=== PATIENT | male | born 1950 | race African-American/Black ===

== ENCOUNTER 2020-05-05 13:43 | Inpatient (IN) | payer SELFPAY ==
[~2020-05-05] VITALS: Ht 172.7 cm; Wt 49.9 kg
[2020-05-05] MEDS ORDERED: DEXTROSE 50% SYRINGE 50 ML IV ONE (15:16)
[2020-05-05 15:40] LABS: Mean Corpuscular Hemoglobin 28.7 pg (28.0-32.0)
[2020-05-05 15:42] LABS: Hematocrit 15.9 % (41.0-53.0); Mean Corpuscular Hgb Conc. 34.3 g/dL (32.0-36.0); Mean Corpuscular Volume 83.6 fL (80.0-100.0)
[2020-05-05] MEDS ORDERED: DEXTROSE (50%) 50ML SYRG IV ONE (15:45)
[2020-05-05 15:49] LABS: White Blood Cell 1.9 10^3/uL (4.4-10.8)
[2020-05-05 15:52] LABS: Hemoglobin 5.5 g/dL (13.5-17.5); Platelet Count (auto) 9 10^3/uL (140-450)
[2020-05-05 15:54] LABS: Band Neutrophils % (manual) 0; Basophils % (manual) 0 (0.0-2.0); Blast Cells 0; Eosinophils % (manual) 0 (0-7); Promyelocytes % 0
[2020-05-05 15:56] LABS: INR 1.81 (0.9-1.15)
[2020-05-05 16:04] LABS: Albumin 2.3 g/dL (3.4-5.0); Calcium 9.6 mg/dL (8.5-10.1); Potassium 3.8 mmol/L (3.5-5.1)
[2020-05-05 16:10] LABS: BUN/Creatinine Ratio 29.8; Bilirubin, Total 1.8 mg/dL (0.2-1.0); Total Protein 5.1 g/dL (6.4-8.2)
[2020-05-05] MEDS ORDERED: SODIUM CHLORIDE 0.9% 2,000 ML IV ONE (16:15)
[2020-05-05] MEDS ORDERED: AZITHROMYCIN 500MG/ 250ML 250 ML IV ONE (17:45)
[2020-05-05] MEDS ORDERED: SODIUM CHLORIDE 0.9% 1,000 ML IV ONE ×2 (18:45→19:15)
[2020-05-05] MEDS ORDERED: ONDANSETRON HCL 4 MG/2 ML VIAL IV PRN (18:45)
[2020-05-05] MEDS ORDERED: HYDROcodone-ACET 5/325MG TAB PO PRN (18:45)
[2020-05-05] MEDS ORDERED: NITROGLYCERIN 0.4 MG SL TAB SL PRN (18:45)
[2020-05-05] MEDS ORDERED: MORPHINE SULF INJ 2 MG/ML SYRINGE 1ML IV PRN ×2 (18:45)
[2020-05-05] MEDS ORDERED: ACETAMINOPHEN 500 MG TAB PO PRN (18:45)
[2020-05-05 20:00] VITALS: BP 91/45
[2020-05-05 20:35] LABS: CRP High Sensitivity 5.07 mg/dL (< 0.3)
[2020-05-05 20:50] LABS: Metamyelocytes % 3; Monocytes % (manual) 10 (0-12); Myelocytes % 2
[2020-05-05 20:51] LABS: Lymphocytes % (manual) 73 (10.0-50.0); Reactive Lymphocytes 4
[2020-05-05] MEDS ORDERED: BUDESONIDE (INHALATION) 180 MCG IH IN SCH (22:00)
[2020-05-05] MEDS ORDERED: ALBUMIN 5% 250 ML IV ONE ×2 (22:00→23:30)
[2020-05-05] MEDS ORDERED: SODIUM BICARBONATE 8.4% INJ 50ML SYRINGE ONE ×2 (22:30→23:07)
[2020-05-05] MEDS ORDERED: NOREPINEPHRINE 8 MG/250ML KIT 250 ML IV ONE (22:41)
[2020-05-05] MEDS ORDERED: MIDAZOLAM DRIP 50 mg/50mL 50 ML IV ONE (22:43)
[2020-05-05] MEDS ORDERED: MIDAZOLAM DRIP 50 mg/50mL 50 ML IV PRN (22:45)
[2020-05-05] MEDS ORDERED: ACETAMINOPHEN 650 mg PER 20.3 mL UD GT PRN ×2 (22:45)
[2020-05-05] MEDS ORDERED: MIDAZOLAM DRIP 50 mg/50mL 50 ML IV SCH (22:45)
[2020-05-05] MEDS ORDERED: NOREPINEPHRINE 8 MG/250ML KIT 250 ML IV SCH (22:45)
[2020-05-05] MEDS ORDERED: EPINEPHrine HCL 250 ML IV SCH (23:15)
[2020-05-05] MEDS ORDERED: EPINEPHrine HCL 250 ML IV ONE (23:22)
[2020-05-05] MEDS ORDERED: EPINEPHrine HCL 1 MG/10 ML SYRG ONE (23:31)
[2020-05-05 23:59] LABS: Basophils # (auto) 1.6 10 ^3/uL (0-0.2); Basophils % (auto) 7.3 % (0.0-2.0); Eosinophils # (auto) 0.3 10 ^3/uL (0-0.8); Eosinophils % (auto) 1.6 % (0.0-7.0); Hematocrit 16.3 % (41.0-53.0); Lymphocytes # (auto) 13.9 10 ^3/uL (0.4-5.4); Mean Corpuscular Hemoglobin 29.2 pg (28.0-32.0); Mean Corpuscular Hgb Conc. 27.2 g/dL (32.0-36.0); Mean Corpuscular Volume 107.2 fL (80.0-100.0); Monocytes # (auto) 0.4 10 ^3/uL (0-1.3); Monocytes % (auto) 1.7 % (0.0-12.0); Neutrophils # (auto) 5.3 10 ^3/uL (1.6-8.6); Neutrophils % (auto) 24.7 % (37.0-80.0); Platelet Count (auto) 60 10^3/uL (140-450); Red Blood Cells 1.52 10^6/uL (4.5-5.90); White Blood Cell 21.4 10^3/uL (4.4-10.8)
[2020-05-06 00:02] LABS: Lymphocytes % (auto) 64.7 % (10.0-50.0); Nucleated Red Blood Cells % 4.5 %; Red Cell Distribution Width 20.4 % (11.8-14.3)
[2020-05-06 00:03] LABS: Hemoglobin 4.4 g/dL (13.5-17.5)
[2020-05-06 00:16] LABS: Albumin 1.5 g/dL (3.4-5.0); Calcium 8.8 mg/dL (8.5-10.1); Magnesium 2.8 mg/dL (1.6-2.6); Potassium 5.3 mmol/L (3.5-5.1)
[2020-05-06 00:32] LABS: BUN/Creatinine Ratio 26.9
[2020-05-06 00:33] LABS: Bilirubin, Total 0.8 mg/dL (0.2-1.0); Phosphorus 9.8 mg/dL (2.5-4.90); Total Protein 3.3 g/dL (6.4-8.2)
[2020-05-06] MEDS ORDERED: cefTRIAXone 1GM/50ML D5W 50 ML IV SCH (09:00)
[2020-05-06] MEDS ORDERED: ASCORBIC ACID 1,000 MG TAB PO SCH (10:00)
[2020-05-06] MEDS ORDERED: ZINC SULFATE 220mg CAP or TAB PO SCH (10:00)
[2020-05-06] MEDS ORDERED: AZITHROMYCIN 500MG/ 250ML 250 ML IV SCH (10:00)
[2020-05-06] MEDS ORDERED: CHOLECALCIFEROL (VITD3) 2,000 UNIT CAP PO SCH (10:00)
[2020-05-06] MEDS ORDERED: BUDESONIDE (INHALATION) 0.5 MG/2 ML NEB NEB SCH ×2 (10:00)
[2020-05-06] MEDS ORDERED: DexAMETHasone SOD PHOS 10MG/1ML VIAL INJ IV SCH (10:00)
== END 2020-05-05 23:29 | DRG 682 ==
LOC: EDUNIT# 13:43 → ER 13:43 → TELE 13:44
PROVIDERS: ADMIT Nurse Practitioner Acute Care; ATTEND Nurse Practitioner Acute Care
PROC: 5A12012 Performance of Cardiac Output, Single, Manual (ICD-10-PCS; principal; 2020-05-05)
PROC: 0BH17EZ Insertion of Endotracheal Airway into Trachea, Via Natural or Artificial Opening (ICD-10-PCS; 2020-05-05)
DX: N17.0 Acute kidney failure with tubular necrosis (principal); J12.9 Viral pneumonia, unspecified; E43 Unspecified severe protein-calorie malnutrition; G93.41 Metabolic encephalopathy; J96.01 Acute respiratory failure with hypoxia; D61.818 Other pancytopenia; Z68.1 Body mass index [BMI] 19.9 or less, adult; C90.00 Multiple myeloma not having achieved remission; E16.2 Hypoglycemia, unspecified; I46.9 Cardiac arrest, cause unspecified; N18.9 Chronic kidney disease, unspecified; Z20.828 Contact with and (suspected) exposure to other viral communicable diseases
CPT/HCPCS: 36415; 36600; 71045; 80053; 82728; 82805; 82962; 83605; 83615; 83735; 84100; 84443; 84484; 85007; 85025; 85027; 85379; 85610; 85730; 86141; 86850; 86900; 86901; 86920; 87040; 87077; 87186; 87426; 93005; 96361; 96365; 96375; G0378; J0171; J2250